=== PATIENT | male | born 1975 | race African-American/Black ===

== ENCOUNTER 2016-09-29 05:54 | Emergency (ER) | payer BC ==
[~2016-09-29] VITALS: Ht 177.8 cm; Wt 83.0 kg
[~2016-09-29 05:54] MED LIST: AMOX500T PO; CLIN150 PO; FLON0.053; PERC5TAB12 PO; SULF-154 PO; Z.0.NO CURRENT MEDS
[2016-09-29 05:56] VITALS: BP 153/87; PULSE 83; RESP 14; TEMP 97.7; O2SAT 100
[2016-09-29] MEDS ORDERED: SODIUM CHLOR 0.9% 1000 ML INJ 1,000 ML IV SCH (06:20)
[2016-09-29] MEDS ORDERED: SODIUM CHLORIDE 0.9% FLUSH 10 ML FLUSH IV FLUSH PRN (06:30)
[2016-09-29] MEDS ORDERED: MORPHINE SULFATE 4 MG/ML INJ IV PUSH ONE (06:30)
--- NOTE | 2016-09-29 06:33 | PD ---
HPI Chief Complaint: Abdominal Pain Time Seen by Provider: 06:09 Travel History International Travel<30 days: No Contact w/Intl Traveler<30days: No Traveled to known affect area: No History of Present Illness HPI 41-year-old male with history of ventral abdominal wall hernia, here for evaluation of a painful bulge at the hernia site. 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 Pain started yesterday evening, worsened throughout the night. He has had 2 episodes of vomiting. Pain is constant, worse with palpation. Last bowel movement was yesterday at around 1:00 PM. He denies history of abdominal surgeries. Chart review shows that the patient was here in 2013, and the ventral hernia was reduced in the emergency department. The patient has not followed up with a surgeon since this visit. [facility] Social History Alcohol Use: Yes Tobacco Use: Yes Substance Use: No Allergies-Medications (Allergen,Severity, Reaction): Coded Allergies: No Known Allergies (Unverified , 09/29/16) Reported Meds & Prescriptions Reported Meds & Active Scripts Active No Active Prescriptions or Reported Medications Review of Systems Except as stated in HPI: all other systems reviewed are Neg Physical Exam Narrative GENERAL: Well-developed, well-nourished, pleasant, comfortable, no acute distress. SKIN: Focused skin assessment warm/dry. HEAD: Atraumatic. Normocephalic. EYES: Pupils equal and round. No scleral icterus. No injection or drainage. ENT: Mucous membranes pink and moist. NECK: Trachea midline. No JVD. CARDIOVASCULAR: Regular rate and rhythm. RESPIRATORY: No accessory muscle use. Clear to auscultation. Breath sounds equal bilaterally. GASTROINTESTINAL: Abdomen soft, nondistended. Moderate sized supraumbilical/ ventral abdominal wall hernia that was reduced with gentle/steady pressure. This caused the patient moderate discomfort. No peritoneal signs after reduction. Normal bowel sounds. Hernia site was still operator gin after reduction. No other hernias. MUSCULOSKELETAL: No obvious deformities. No clubbing. No cyanosis. No edema. NEUROLOGICAL: Awake and alert. No obvious cranial nerve deficits. Motor grossly within normal limits. Normal speech. PSYCHIATRIC: Appropriate mood and affect; insight and judgment normal. Data Data Last Documented VS Vital Signs Date Time Temp Pulse Resp B/P Pulse Ox O2 Delivery O2 Flow Rate FiO2 09/29/16 06:39 71 18 145/92 100 Room Air 09/29/16 05:56 97.7 Orders Complete Blood Count With Diff (09/29/16 06:20) Comprehensive Metabolic Panel (09/29/16 06:20) Lipase (09/29/16 06:20) Lactic Acid (09/29/16 06:20) Prothrombin Time / Inr (Pt) (09/29/16 06:20) Act Partial Throm Time (Ptt) (09/29/16 06:20) Ct Abd/Pel W Iv Contrast(Rout) (09/29/16 06:20) Iv Access Insert/Monitor (09/29/16 06:20) Ecg Monitoring (09/29/16 06:20) Oximetry (09/29/16 06:20) Morphine Inj (Morphine Inj) (09/29/16 06:30) Sodium Chlor 0.9% 1000 Ml Inj (Ns 1000 M (09/29/16 06:20) Sodium Chloride 0.9% Flush (Ns Flush) (09/29/16 06:30) Diatrizoate Liq ( Gastroview Liq) (09/29/16 06:43) MDM Medical Decision Making Medical Screen Exam Complete: Yes Emergency Medical Condition: Yes Differential Diagnosis Ventral hernia: Strangulated vs incarcerated, gastritis, pancreatitis, hepatobiliary disease Narrative Course Patient has a ventral abdominal wall hernia that was reduced by me shortly after arrival to the emergency department. At approximate 7:00 AM at the end of my shift the patient was signed out to Dr. Altamirano who will follow up with labs, imaging results, and will disposition the patient. Procedures Procedure Narrative Ventral hernia reduction: Patient has a moderate size supra umbilical/ventral abdominal wall hernia that was easily reduced using gentle/constant pressure. Hernia site was tender after reduction. No peritoneal signs after reduction. No complications. Scripts No Active Prescriptions or Reported Meds Victor Manuel Mcmillan MD September 29, 2016 06:33
[2016-09-29 06:39] VITALS: BP 145/92; PULSE 71; RESP 18; O2SAT 100
[2016-09-29] MEDS ORDERED: DIATRIZOATE MEGLUM/DIATRIZOATE SOD 9 ML CUP ONE (06:43)
[2016-09-29 07:03] LABS: APTT (PATIENT) 25.9 SEC (24.3-30.1); PROTHROMBIN TIME - PATIENT 11.1 SEC (9.8-11.6)
[2016-09-29 07:22] LABS: ALKALINE PHOSPHATASE 91 U/L (45-117); ALT (GPT) 21 U/L (12-78); ANION GAP 5 MEQ/L (5-15); AST (GOT) 19 U/L (15-37); BICARBONATE 26.6 MEQ/L (21.0-32.0); BLOOD UREA NITROGEN 14 MG/DL (7-18); CHLORIDE 108 MEQ/L (98-107); GLOMERULAR FILTRATION RATE 92 ML/MIN (>89); POTASSIUM 3.7 MEQ/L (3.5-5.1); SODIUM (NA) 140 MEQ/L (136-145)
--- NOTE | 2016-09-29 07:44 | PD ---
Physical Exam Date Seen by Provider: September 29, 2016 Time Seen by Provider: 07:43 Narrative The patient is a 41-year-old male was initially evaluated by the previous physician Dr. Mcmillan. Please refer to the initial history, physical, diagnostic evaluation, and treatment modality plan. The patient was signed out at [address] the abdomen and pelvis pending after Dr. Mcmillan reduced a ventral hernia. Data Data Last Documented VS Vital Signs Date Time Temp Pulse Resp B/P Pulse Ox O2 Delivery O2 Flow Rate FiO2 09/29/16 08:00 70 16 140/72 98 Room Air 09/29/16 05:56 97.7 Orders Complete Blood Count With Diff (09/29/16 06:20) Comprehensive Metabolic Panel (09/29/16 06:20) Lipase (09/29/16 06:20) Lactic Acid (09/29/16 06:20) Prothrombin Time / Inr (Pt) (09/29/16 06:20) Act Partial Throm Time (Ptt) (09/29/16 06:20) Ct Abd/Pel W Iv Contrast(Rout) (09/29/16 06:20) Iv Access Insert/Monitor (09/29/16 06:20) Ecg Monitoring (09/29/16 06:20) Oximetry (09/29/16 06:20) Morphine Inj (Morphine Inj) (09/29/16 06:30) Sodium Chlor 0.9% 1000 Ml Inj (Ns 1000 M (09/29/16 06:20) Sodium Chloride 0.9% Flush (Ns Flush) (09/29/16 06:30) Diatrizoate Liq ( Gastroview Liq) (09/29/16 06:43) Iohexol 350 Inj (Omnipaque 350 Inj) (09/29/16 08:37) Labs Laboratory Tests Test 09/29/16 06:32 White Blood Count 4.9 TH/MM3 Red Blood Count 3.68 MIL/MM3 Hemoglobin 12.7 GM/DL Hematocrit 36.4 % Mean Corpuscular Volume 99.1 FL Mean Corpuscular Hemoglobin 34.7 PG Mean Corpuscular Hemoglobin 35.0 % Concent Red Cell Distribution Width 13.8 % Platelet Count 156 TH/MM3 Mean Platelet Volume 8.1 FL Neutrophils (%) (Auto) % Lymphocytes (%) (Auto) % Monocytes (%) (Auto) % Eosinophils (%) (Auto) % Basophils (%) (Auto) % Neutrophils # (Auto) TH/MM3 Lymphocytes # (Auto) TH/MM3 Monocytes # (Auto) TH/MM3 Eosinophils # (Auto) TH/MM3 Basophils # (Auto) TH/MM3 CBC Comment AUTO DIFF Differential Total Cells 100 Counted Neutrophils % (Manual) 49 % Lymphocytes % 41 % Monocytes % 5 % Eosinophils % 3 % Basophils % 2 % Neutrophils # (Manual) 2.4 TH/MM3 Differential Comment FINAL DIFF MANUAL Platelet Estimate NORMAL Platelet Morphology Comment NORMAL Red Cell Morphology Comment Hematology Comments Prothrombin Time 11.1 SEC Prothromb Time International 1.0 RATIO Ratio Activated Partial 25.9 SEC Thromboplast Time Sodium Level 140 MEQ/L Potassium Level 3.7 MEQ/L Chloride Level 108 MEQ/L Carbon Dioxide Level 26.6 MEQ/L Anion Gap 5 MEQ/L Blood Urea Nitrogen 14 MG/DL Creatinine 1.06 MG/DL Estimat Glomerular Filtration 92 ML/MIN Rate Random Glucose 92 MG/DL Lactic Acid Level 1.2 mmol/L Calcium Level 8.5 MG/DL Total Bilirubin 3.0 MG/DL Aspartate Amino Transf 19 U/L (AST/SGOT) Alanine Aminotransferase 21 U/L (ALT/SGPT) Alkaline Phosphatase 91 U/L Total Protein 6.9 GM/DL Albumin 3.7 GM/DL Lipase 119 U/L [facility] Medical Record Reviewed: Yes Supervised Visit with ANDREW: No Interpretation(s) Laboratory Tests Test 09/29/16 06:32 White Blood Count 4.9 TH/MM3 Red Blood Count 3.68 MIL/MM3 Hemoglobin 12.7 GM/DL Hematocrit 36.4 % Mean Corpuscular Volume 99.1 FL Mean Corpuscular Hemoglobin 34.7 PG Mean Corpuscular Hemoglobin 35.0 % Concent Red Cell Distribution Width 13.8 % Platelet Count 156 TH/MM3 Mean Platelet Volume 8.1 FL Neutrophils (%) (Auto) % Lymphocytes (%) (Auto) % Monocytes (%) (Auto) % Eosinophils (%) (Auto) % Basophils (%) (Auto) % Neutrophils # (Auto) TH/MM3 Lymphocytes # (Auto) TH/MM3 Monocytes # (Auto) TH/MM3 Eosinophils # (Auto) TH/MM3 Basophils # (Auto) TH/MM3 CBC Comment AUTO DIFF Differential Total Cells 100 Counted Neutrophils % (Manual) 49 % Lymphocytes % 41 % Monocytes % 5 % Eosinophils % 3 % Basophils % 2 % Neutrophils # (Manual) 2.4 TH/MM3 Differential Comment FINAL DIFF MANUAL Platelet Estimate NORMAL Platelet Morphology Comment NORMAL Red Cell Morphology Comment Hematology Comments Prothrombin Time 11.1 SEC Prothromb Time International 1.0 RATIO Ratio Activated Partial 25.9 SEC Thromboplast Time Sodium Level 140 MEQ/L Potassium Level 3.7 MEQ/L Chloride Level 108 MEQ/L Carbon Dioxide Level 26.6 MEQ/L Anion Gap 5 MEQ/L Blood Urea Nitrogen 14 MG/DL Creatinine 1.06 MG/DL Estimat Glomerular Filtration 92 ML/MIN Rate Random Glucose 92 MG/DL Lactic Acid Level 1.2 mmol/L Calcium Level 8.5 MG/DL Total Bilirubin 3.0 MG/DL Aspartate Amino Transf 19 U/L (AST/SGOT) Alanine Aminotransferase 21 U/L (ALT/SGPT) Alkaline Phosphatase 91 U/L Total Protein 6.9 GM/DL Albumin 3.7 GM/DL Lipase 119 U/L Last Impressions Abdomen/Pelvis CT 09/29/16 0620 Signed Impressions: Service Date/Time: Thursday, September 29, 2016 08:33 - CONCLUSION: 1. No acute abnormality. 2. Small ventral hernia containing omental fat. Dawit Hurley Jr., MD Differential Diagnosis Differential diagnosis includes ventral hernia, reducible hernia, strangulated hernia, incarcerated hernia, diastases. Narrative Course The patient was initially evaluated by Dr. Mcmillan, please refer to the initial history, physical, diagnostic evaluation, and treatment modality plan. Dr. Mcmillan states that he reduced a ventral hernia, however, thought there might be a small piece of omentum still stuck in the hernia opening, therefore, ordered a CT the abdomen and pelvis to ensure that there was no bowel still within the hernia. The patient was signed out at [address] of the abdomen and pelvis pending. Laboratory evaluation is unremarkable. CT abdomen and pelvis reveals a ventral hernia that has a small amount of omental fat but no bowel. The patient's symptoms have improved, he is mildly sore around the hernia where it was reduced. The patient is advised to follow-up with a general surgeon. Return if symptoms worsen or progress. Diagnosis Primary Impression: Ventral hernia Qualified Code: K43.9 - Ventral hernia without obstruction or gangrene Patient Instructions: General Instructions Additional Instruction: Work excuse for today. Please provide a patient a copy of his CT results and lab results at discharge. Return if symptoms worsen or progress. Follow-up with a general surgeon for definitive management. Med/Other Pt SpecificInfo: Prescription(s) given Scripts Ibuprofen 600 Mg [id number] Mg PO Q6H PRN (Pain/Inflammation) #20 TAB Ref 0 Prov:Celestine Altamirano MD 09/29/16 Disposition: 01 DISCHARGE HOME Condition: Stable Celestine Altamirano MD September 29, 2016 07:44
[2016-09-29 08:00] VITALS: BP 140/72; PULSE 70; RESP 16; O2SAT 98
[2016-09-29 08:35] LABS: HEMATOCRIT 36.4 % (39.0-51.0); MEAN CELL VOLUME 99.1 FL (80.0-100.0); MEAN CORPUSCULAR HEMOGLOBIN 34.7 PG (27.0-34.0); PLATELET COUNT 156 TH/MM3 (150-450); RED BLOOD COUNT 3.68 MIL/MM3 (4.50-5.90); RED CELL DISTRIBUTION WIDTH 13.8 % (11.6-17.2); WHITE BLOOD COUNT 4.9 TH/MM3 (4.0-11.0)
[2016-09-29 08:37] LABS: HEMO FLAGS AUTO DIFF
[2016-09-29] MEDS ORDERED: IOHEXOL 350 MG/ML 10 ML VIAL (for RAD DIAG) IV ONE (08:37)
[2016-09-29 08:42] LABS: BASOPHILS 2 % (0-2); EOSINOPHILS 3 % (0-4); NEUTROPHIL # MANUAL DIFF 2.4 TH/MM3 (1.8-7.7); PLATELET ESTIMATE SMEAR NORMAL (NORMAL); PLATELET MORPHOLOGY NORMAL (NORMAL); POLYS (SEG NEUTROPHILS) 49 % (16-70); SCAN/DIFF FINAL DIFF MANUAL; WBC DIFF SAMPLE 100
--- NOTE | 2016-09-29 08:49 | RADRPT ---
EXAM DATE/TIME: 09/29/2016 08:33 [facility] COMPARISON: No previous studies available for comparison. INDICATIONS : Abdominal pain; history of ventral wall hernia. IV CONTRAST: 80 cc Omnipaque 350 (iohexol) IV ORAL CONTRAST: Prescribed oral contrast ingested. RADIATION DOSE: 9.96 CTDIvol (mGy) MEDICAL HISTORY : Ventral wall hernia. SURGICAL HISTORY : None. ENCOUNTER: Initial ACUITY: 1 day PAIN SCALE: 8/10 LOCATION: Bilateral upper quadrant TECHNIQUE: Volumetric scanning of the abdomen and pelvis was performed. Using automated exposure control and ad justment of the mA and/or kV according to patient size, radiation dose was kept as low as reasonably achievable to obtain optimal diagnostic quality images. FINDINGS: LOWER LUNGS: The visualized lower lungs are clear. LIVER: Homogeneous density without lesion. There is no dilation of the biliary tree. No calcified gallston es. SPLEEN: Normal size without lesion. PANCREAS: Within normal limits. KIDNEYS: Normal in size and shape. There is no mass, stone or hydronephrosis. ADRENAL GLANDS: Within normal limits. VASCULAR: There is no aortic aneurysm. BOWEL/MESENTERY: The stomach, small bowel, and colon demonstrate no acute abnormality. There is no free intraperitone al air or fluid. ABDOMINAL WALL: Tiny ventral hernia containing omental fat. This is cephalad to the umbilicus. RETROPERITONEUM: There is no lymphadenopathy. BLADDER: No wall thickening or mass. REPRODUCTIVE: Within normal limits. INGUINAL: There is no lymphadenopathy or hernia. MUSCULOSKELETAL: Within normal limits for patient age. CONCLUSION: 1. No acute abnormality. 2. Small ventral hernia containing omental fat. Dawit Hurley Jr., MD on September 29, 2016 at 8:41 Board Certified Radiologist. This report was verified electronically.
[2016-09-29] MEDS ORDERED: IBUP-232 PO (09:27)
[2016-09-29 09:30] VITALS: BP 149/68; PULSE 72; RESP 14; O2SAT 98
== END 2016-09-29 09:42 | disposition home or self-care (01) ==
LOC: NEPE 05:54
DX: K43.9 Ventral hernia without obstruction or gangrene (principal); R11.10 Vomiting, unspecified; R10.9 Unspecified abdominal pain; Z72.0 Tobacco use
CPT/HCPCS: 74177; 80053; 83605; 83690; 85007; 85027; 85610; 85730; 96361; 96374; 99284; J2270; J7030; Q9963; Q9967